=== PATIENT | male | born 1985 | race Caucasian/White ===

== ENCOUNTER 2020-03-28 17:22 | Emergency (ER) | payer MEDICAID, SELFPAY ==
[2020-03-28 17:53] VITALS: BP 122/77; PULSE 91; RESP 19; TEMP 36.9; O2SAT 97; BMI 28.2
[2020-03-28 17:57] VITALS: BP 122/77; PULSE 91; RESP 19; TEMP 36.9; O2SAT 97
--- NOTE | 2020-03-28 18:11 | ED.PSYCH ---
HPI - Psych General Chief Complaint: Psychiatric Symptoms Stated Complaint: SEEKING DETOX Time Seen by Provider: 03/28/20 17:37 Source: patient Mode of arrival: ambulatory Limitations: no limitations History of Present Illness HPI Narrative: 34-year-old male with history of psych and substance abuse presents with a request for detox and requires behavioral health and medical clearance. He has been using alcohol, heroin and cocaine. He does not describe any suicidal or homicidal ideations, does not report any physical complaints at this time. MD complaint: feels depressed, substance abuse and alcohol abuse Onset (ago): unknown Duration: constant History of same: Yes Relieving factors: none Exacerbating factors: alcohol and drug use Context: recent alcohol abuse and recent drug abuse Associated psychiatric symptoms: depression Associated symptoms: denies other symptoms Treatments prior to arrival: none Related Data Allergies Allergy/AdvReac Type Severity Reaction Status Date / Time No Known Allergies Allergy Unverified 12/27/19 17:30 Review of Systems Review of Systems: Constitutional: No Fever, No Chills ENT/Mouth: No Ear Pain, No Nasal Congestion, No sore throat Eyes: No Eye Pain, No Swelling, No Redness Cardiovascular: No Chest Pain, No SOB Respiratory: No Cough, No Sputum, No Dyspnea Gastrointestinal: No Nausea, No Vomiting, No Diarrhea, No Hematochezia, No Melena Genitourinary: No Dysuria, No Urinary Frequency, No Hematuria Musculoskeletal: No Myalgias Skin: No Skin Lesions, No rash Neuro: No Weakness, No Numbness, No Paresthesias, No Dizziness, No Headache Psych: no Anxiety, no Depression, no SI/HI, positive substance abuse ETOH and heroin Heme/Lymph: No Lymphadenopathy Endocrine: No Polyuria, No Polydipsia Yes all other systems are reviewed and are negative [facility] Past Medical History Attestation statement: The following information was validated with the patient. Social History Social History Alcohol intake: current Alcohol intake frequency: 3 or more drinks per day Alcohol type: beer Smoking Status: Current every day smoker Smoked in Last 30 Days: Yes Use of substances other than those prescribed or required for medical reasons: Yes Substance Use Type: Crack/Cocaine and Heroin Substance Use Frequency: Daily Last Used Substance: Hours (ago) Any prior treatment program specific to substance use: Yes Advance Directives: No Advance Directives Information Provided: Yes Physical Exam Vital Signs: Vital Signs: Last Vital Signs Temp 102.4 F H 03/28/20 23:44 Pulse 80 03/28/20 23:44 Resp 17 03/28/20 23:44 BP 120/44 L 03/28/20 23:44 Pulse Ox 99 03/28/20 23:44 Body Mass Index 28.2 Appearance: Alert. Oriented X3. No acute distress. Eyes: Pupils equal, round and reactive to light. ENT: Pharynx normal. Neck: Normal inspection. Neck supple. CVS: Normal heart rate and rhythm. Pulses normal. Respiratory: No respiratory distress. Breath sounds normal. Abdomen: Soft and nontender. Skin: multiple puncture wound in track mustapha site to the bilateral arms and neck Extremities: No lower extremity edema. Neuro: No motor deficit. No sensory deficit. Course Course Course Narrative: 34-year-old male with significant alcohol , cocaine and heroin abuse. Patient requires behavioral health and medical clearance prior to admission to detox. Labs and BHN consult pending. Care team consult complete, plan is for detox in the morning. MDM - Psych Differential Diagnosis Differential diagnosis: Likely depression, drug-induced psychotic disorder, acute anxiety, substance abuse and alcohol intoxication Restraints Face to Face Assessment: Face to Face Assessment: Current Situation: After assessment of the patient, a review of the pertinent medical record and a discussion with nursing staff, I feel the patient requires a restrain intervention. Reaction To: [] Medical Condition: [] Behavioral State: [] Continued Need: [] Medical Records Attestation: I reviewed the patient's medical records. Lab Data Attestation: I reviewed the patient's lab results. Result diagrams: 03/28/20 18:30 Labs: Lab Results 03/28/20 03/28/20 03/28/20 Range/Units 18:16 18:30 18:30 WBC 3.8 L (4.8-10.8) X10*3/uL RBC 4.07 L (4.60-5.80) X10*6/uL Hgb 11.3 L (14.0-18.0) g/dl Hct 34.8 L (42-52) % MCV 85.5 (80-98) fL MCH 27.8 (27.0-33.0) pg MCHC 32.5 (31.0-36.0) g/dl RDW 13.5 (11.0-16.0) % Plt Count 238 (160-400) X10*3/uL MPV 8.7 L (9.4-12.4) fL Immature Gran % (Auto) 0.0 (0.0-0.4) % Neut % (Auto) 79.4 H (45-73) % Lymph % (Auto) 14.7 L (20-40) % [place] % (Auto) 4.3 (2-11) % Eos % (Auto) 0.8 (0-4) % Baso % (Auto) 0.8 (0-2) % Lymph # (Auto) 0.6 L (1.2-4.9) X10*3/uL [place] # (Auto) 0.2 (0.1-1.2) X10*3/uL Eos # (Auto) 0.0 (0.0-0.4) X10*3/uL Baso # (Auto) 0.0 (0.0-0.2) X10*3/uL Abs Immat Gran (auto) 0.00 (0.00-0.03) X10*3/uL Absolute Neuts (auto) 3.0 (2.0-8.3) X10*3/uL Absolute Nucleated RBC 0.000 (0.0-0.012) X10*3/uL Nucleated RBC % (auto) 0.0 (0.0-0.2) /100WBC Smear Tech's Comments VERIFIED Urine Opiates Screen POSITIVE H (Not Detect) Ur Barbiturates Screen Not Detected (Not Detect) Ur Phencyclidine Scrn Not Detected (Not Detect) Ur Amphetamines Screen Not Detected (Not Detect) U Benzodiazepines Scrn POSITIVE H (Not Detect) Urine Cocaine Screen POSITIVE H (Not Detect) U Marijuana (THC) Screen Not Detected (Not Detect) Ethyl Alcohol < 10 mg/dL Coronavirus (PCR) (Negative) Influenza Type A (PCR) (Negative) Influenza Type B (PCR) (Negative) RSV RNA Qual (PCR) (Negative) 03/28/20 Range/Units 23:57 WBC (4.8-10.8) X10*3/uL RBC (4.60-5.80) X10*6/uL Hgb (14.0-18.0) g/dl Hct (42-52) % MCV (80-98) fL MCH (27.0-33.0) pg MCHC (31.0-36.0) g/dl RDW (11.0-16.0) % Plt Count (160-400) X10*3/uL MPV (9.4-12.4) fL Immature Gran % (Auto) (0.0-0.4) % Neut % (Auto) (45-73) % Lymph % (Auto) (20-40) % [place] % (Auto) (2-11) % Eos % (Auto) (0-4) % Baso % (Auto) (0-2) % Lymph # (Auto) (1.2-4.9) X10*3/uL [place] # (Auto) (0.1-1.2) X10*3/uL Eos # (Auto) (0.0-0.4) X10*3/uL Baso # (Auto) (0.0-0.2) X10*3/uL Abs Immat Gran (auto) (0.00-0.03) X10*3/uL Absolute Neuts (auto) (2.0-8.3) X10*3/uL Absolute Nucleated RBC (0.0-0.012) X10*3/uL Nucleated RBC % (auto) (0.0-0.2) /100WBC Smear Tech's Comments Urine Opiates Screen (Not Detect) Ur Barbiturates Screen (Not Detect) Ur Phencyclidine Scrn (Not Detect) Ur Amphetamines Screen (Not Detect) U Benzodiazepines Scrn (Not Detect) Urine Cocaine Screen (Not Detect) U Marijuana (THC) Screen (Not Detect) Ethyl Alcohol mg/dL Coronavirus (PCR) NEGATIVE (Negative) Influenza Type A (PCR) NEGATIVE (Negative) Influenza Type B (PCR) NEGATIVE (Negative) RSV RNA Qual (PCR) NEGATIVE (Negative) Discharge Plan Discharge Clinical Impression: Substance abuse Patient Disposition: Home, Self-Care Instructions: Polysubstance Abuse (ED) Additional Instructions: Please follow-up with detox. Thank you for choosing this emergency department for evaluation. Please follow-up with primary care physician as needed. Return to the emergency department for any new, concerning, or worsening symptoms.
[2020-03-28 18:37] LABS: Basophils Percent Auto 0.8 % (0-2); Eosinophils Percent Auto 0.8 % (0-4); Hematocrit 34.8 % (42-52); Hemoglobin 11.3 g/dl (14.0-18.0); Lymphocytes Absolute Auto 0.6 X10*3/uL (1.2-4.9); Lymphocytes Percent Auto 14.7 % (20-40); MANUAL DIFF FLAG SCAN; Mean Corpuscular HGB Conc 32.5 g/dl (31.0-36.0); Mean Corpuscular Hemoglobin 27.8 pg (27.0-33.0); Mean Corpuscular Volume 85.5 fL (80-98); Mean Platelet Volume 8.7 fL (9.4-12.4); Monocytes Absolute Auto 0.2 X10*3/uL (0.1-1.2); Monocytes Percent Auto 4.3 % (2-11); Neutrophils Percent Auto 79.4 % (45-73); Platelet Count 238 X10*3/uL (160-400); Red Blood Count 4.07 X10*6/uL (4.60-5.80); Red Cell Distribution Width 13.5 % (11.0-16.0); SCAN SMEAR FLAG 1; White Blood Count 3.8 X10*3/uL (4.8-10.8)
[2020-03-28 19:03] LABS: Amphetamine Screen Urine Not Detected (Not Detect); Barbiturates, Urine Not Detected (Not Detect); Benzodiazepines Screen Urine POSITIVE (Not Detect); Cannabinoid Screen Urine Not Detected (Not Detect); Cocaine Screen Urine POSITIVE (Not Detect); Opiate Screen Urine POSITIVE (Not Detect); Phencyclidine Screen Urine Not Detected (Not Detect)
[2020-03-28 19:12] LABS: Ethanol < 10 mg/dL
[2020-03-28 19:19] LABS: SLIDE REVIEW VERIFIED
--- NOTE | 2020-03-28 22:52 | PC.NURSE ---
Per care team, N unable to send clinician to assess the patient, care team will take over and assess the patient per provider's order. Patient in bed appears resting. no distress observed/reported, will continue to monitor.
[2020-03-28] MEDS: LORazepam 1 MG TABLET 2 MG PO (23:31)
[2020-03-28 23:44] VITALS: BP 120/44; PULSE 80; RESP 17; TEMP 39.1; O2SAT 99
[2020-03-28] MEDS: Acetaminophen 325 MG TABLET 650 MG PO (23:44)
--- NOTE | 2020-03-29 00:03 | PC.NURSE ---
Patient swabbed for Covid/sample sent to lab/patient compliant/pending result
--- NOTE | 2020-03-29 00:05 | PC.NURSE ---
Patient assessed by care team clinician, patient will be staying tonight, care team will do detox bed serach for the patient in the morning.
--- NOTE | 2020-03-29 00:17 | MHC.CARE ---
CARE Team meets with pt in the ED behavioral health pod. Pt was referred to [facility] for crisis assessment, however, [facility] is not available to see pt tonight and therefore, pt is seen by CARE Team. Pt was directed to the ED by [facility]. Pt went there today, seeking ATS admission. He reports that during this process, he became frustrated, because he did not have the belongings with him that he needed and he learned that he would not be able to leave to get them and have his place in line held. Pt identifies that he became irritated, raising his voice, pacing and using inappropriate language. Pt states that [facility] then told him they would not consider his for admission without being cleared for needing higher level of psychiatric care. CARE Team confirms with [facility] that pt does not have a bed held for him, and never had a bed assigned to him today. During CARE Team intervention, pt appears irritable, reporting withdrawal sx. UTOX is positive for cocaine, opioids, and benzodiazepines. Pt also reports some alcohol use, BAL <10. He is sleeping when CARE Team initiates engagement, but he wakes easily and is able to sit up, however, makes minimal eye contact. He reports not prior hospitalizations or outpatient psychiatric care. Per [facility] curriculum supervisor, Bruna, pt has never been evaluated by crisis in the past but has a hx of ATS admissions at [facility]. Pt denies SI//HI and AVH. He denies feeling depressed or anxious. He reported several stressors relating to increased substance use, including housing instability, relationship and financial difficulties, etc. He reports feeling motivated to get clean, and reports long periods of sobreity in the past. Pt does not meet criteria for inpt level of care. Irritability witnessed earlier today is likely related to increased stress relating to substance use, and withdrawal from multiple substances. Pt is advocating for himself to be placed in ATS directly from the ED so he does not hit the streets again. CARE Team conducted local ATS bedsearch. Pt denies having transportation to/from ATS, which limits options. [facility], [facility], [facility], [facility] and [facility] are called and have no beds tonight. Per [facility], no other beds available throughout the state. Plan is for pt to remain in the ED on a voluntary basis. CARE Team will conduct another ATS bedsearch in the morning. CARE Team communicates to pt that if there is still no bed found in the morning, he will likely be discharged, and in that event, CARE Team can provide a list of ATS units with contact info.
[2020-03-29 01:01] LABS: Influenza A PCR NEGATIVE (Negative); Influenza B PCR NEGATIVE (Negative); Resp Syncy Virus RNA Qual PCR NEGATIVE (Negative); SARS COV2 PCR INHOUSE NEGATIVE (Negative)
[2020-03-29 01:54] VITALS: TEMP 37
--- NOTE | 2020-03-29 07:11 | PC.NURSE ---
Report received from CELSO Hunt. Pt resting, resp unlabored.
[2020-03-29 08:00] VITALS: RESP 20
--- NOTE | 2020-03-29 09:38 | PC.NURSE ---
Care team in- per Care team, pt has a bed at [facility], pending intake. Pt aware, and willing to make calls. [facility] in to draw labs. Pt awake, making call.
[2020-03-29 10:00] VITALS: RESP 18
--- NOTE | 2020-03-29 10:04 | MHC.CARE ---
CARE team to assist in detox referral per pass along. T/w contacted central intake at [facility] and not open until 9am and when called after 9am central intake informed t/w that pt was on a 2 month administrative do not admit list for noncompliance. Pt is not to be accepted at any [facility] facility until may 20. Pt was reportedly leaving the program after receiving his methadone dosing. T/w contacted [facility] and no admissions today at any of their facilities. T/w called [facility] and Jasvir at intake accepted clinical faxed at [phone] and asked to have a phone interview with pt for possible intake today. T/w provided CARE team portable phone for this use and overseen by pod staff. Pending outcome of said interview.
--- NOTE | 2020-03-29 10:13 | PC.NURSE ---
Pt called [facility], as suggested, who said they would not be able to accommodate him. Pt currently calling [facility].
[2020-03-29 10:19] VITALS: BP 117/62; PULSE 71; TEMP 37.1; O2SAT 98
[2020-03-29 10:53] LABS: Alanine Aminotransferase 369 U/L (0-40); Albumin Level 3.8 g/dL (3.5-5.0); Alkaline Phosphatase 98 U/L (39-117); Anion Gap 10 (12-20); Aspartate Amino Transferase 445 U/L (5-37); Bilirubin Direct 0.4 mg/dL (0.0-0.5); Bilirubin Total 0.8 mg/dL (0.0-1.0); Blood Urea Nitrogen 15 mg/dL (9-16); Calcium 8.4 mg/dL (8.4-10.2); Carbon Dioxide 28 mmol/L (22-29); Chloride 105 mmol/L (96-108); Creatinine Clr Calc Pharmacy 111.9; Estimated Glomerular Filt Rate > 60; Glucose Random 93 mg/dL (60-115); Magnesium 2.1 mg/dL (1.6-2.6); Potassium 3.9 mmol/l (3.3-5.1); Sodium 139 mmol/L (135-145); Total Protein 6.5 g/dL (6.5-8.0)
--- NOTE | 2020-03-29 11:39 | PC.NURSE ---
Report given to Miriam fontenot [place]. Pt accepted for 1500 today. Provider aware.
--- NOTE | 2020-03-29 11:49 | US_ITS ---
EXAMINATION: US ABDOMEN COMPLETE CLINICAL INFORMATION: Elevated LFTs. COMPARISON: None TECHNIQUE: Real-time imaging of the abdominal viscera. FINDINGS: PANCREAS: The visualized portion of the pancreas head and body are normal, portion of the pancreatic body and tail, not visualized are obscured by bowel gas. ABDOMINAL AORTA: The proximal, mid, and distal segments are normal in caliber. INFERIOR VENA CAVA: Visualized portions are normal. LIVER: Normal. The liver is normal in size. The liver contour is normal. Parenchymal echogenicity is normal. No focal hepatic lesion. There is no intrahepatic biliary duct dilatation seen. GALLBLADDER: Gallbladder is contracted, the wall of which is thickened however probably due to nondistention nonfasting imaging. No gallstones. COMMON BILE DUCT: Normal in caliber measuring 0.2 cm in diameter. RIGHT KIDNEY: Normal. No hydronephrosis. No renal calculi or focal parenchymal lesions. The kidney measures 10.2 cm in maximum dimension. LEFT KIDNEY: Normal. No hydronephrosis. No renal calculi or focal parenchymal lesions. The kidney measures 10.2 cm in maximum dimension. SPLEEN: Enlarged The spleen measures 16 cm in maximum dimension. There are 2 splenules 1.4 x 1.1 x 1.1 cm and 2 x 2 x 1.9 cm. FREE FLUID: None. US/US abdomen complete IMPRESSION: 1. Spleen enlarged 16 cm. 2. Solid rounded structure adjacent to the splenic hilum likely splenules. Ultrasound otherwise normal.
--- NOTE | 2020-03-29 11:53 | PC.NURSE ---
Pt awake, alert, aware that has accepted him for 1500. Pt denies any abdominal pain, or symptoms at this time.
[2020-03-29 12:00] VITALS: RESP 18
--- NOTE | 2020-03-29 12:48 | PC.NURSE ---
Pt at Ultrasound at this time. At pt's request, spoke with Aunt, Soledad, to verify that he has been accepted to [place]. Aunt will transport him to [place], will crop picker at 1400.
--- NOTE | 2020-03-29 13:27 | PC.NURSE ---
Pt resting, resp unlabored.
[2020-03-29 14:00] VITALS: RESP 18
[2020-03-31 07:53] LABS: Hepatitis B Surface Antigen Negative (Negative); ~HepC Num1 14.81 S/CO (0.00-0.79); ~Hepatitis C Antibody Reactive (Nonreactive)
[2020-03-31 08:30] LABS: HBS Num1 2.13 mIU/mL (0-7.99); HBc Num1 0.13 S/CO (0.00-0.79); Hepatitis B Core Antibody Nonreactive (Nonreactive); ~Hepatitis B Surface Antibody NONREACTIVE (Nonreactive)
[2020-04-02 08:19] LABS: Hepatitis A Antibody IgM 0.36 Index (0-0.79); ~Hepatitis A Antibody IgM Nonreactive (Nonreactive)
== END 2020-03-29 14:17 | disposition home or self-care (01) ==
PROVIDERS: Nurse Practitioner Family; Physician Assistant Medical; Emergency Provider Emergency Medicine
DX: F11.10 Opioid abuse, uncomplicated (principal); F14.10 Cocaine abuse, uncomplicated; F13.10 Sedative, hypnotic or anxiolytic abuse, uncomplicated; F10.10 Alcohol abuse, uncomplicated; Y90.0 Blood alcohol level of less than 20 mg/100 ml; Z20.828 Contact with and (suspected) exposure to other viral communicable diseases; F17.200 Nicotine dependence, unspecified, uncomplicated
CPT/HCPCS: 0241U; 36415; 76700; 80048; 80076; 80307; 80320; 83735; 85025; 86704; 86706; 86709; 86803; 87340; 99285

== ENCOUNTER 2020-07-01 19:59 | Inpatient (IN) | payer MEDICAID, SELFPAY ==
--- NOTE | ~2020-07-01 | CT_ITS ---
EXAMINATION: CT LEFT FOREARM AND LEFT HAND WITH CONTRAST CLINICAL INFORMATION: Swelling. Concern for osteomyelitis. COMPARISON: None TECHNIQUE: Contiguous helical images of the left forearm and hand were obtained following the administration of IV contrast. Multiplanar reconstructions were performed. FINDINGS: No drainable fluid collections are identified. There are no osseous abnormalities. There are no fractures. There aren't no areas of cortical destruction. CT/CT forearm LT w con IMPRESSION: No drainable fluid collections are identified. There are no osseous abnormalities. There are no fractures. There aren't no areas of cortical destruction.
--- NOTE | ~2020-07-01 | US_ITS ---
EXAMINATION: US VENOUS WITH DOPPLER UPPER EXTREMITY, LEFT CLINICAL INFORMATION: Left arm swelling. COMPARISON: None TECHNIQUE: Ultrasound of the upper extremity is performed using compression sonography and color and pulse Doppler flow with assessment of augmentation of flow. There is also imaging and Doppler assessment of the jugular and subclavian veins. Spectral analysis with color-flow imaging is performed. FINDINGS: Respiratory variation, normal compression, and augmented flow are noted throughout the upper extremity including the axillary, brachial, cubital, and radial and ulnar veins. There is normal flow in the internal jugular and subclavian veins. There is no visible deep or superficial thrombophlebitis. If the patient's symptoms progress, a followup ultrasound in 5 -7 days might be of value to exclude proximal propagation from a nonvisualized distal arm vein. US/US venous duplex UE LT IMPRESSION: No DVT demonstrated in the left upper extremity.
--- NOTE | ~2020-07-01 | CT_ITS ---
EXAMINATION: CT FACIAL BONES WITH CONTRAST CLINICAL INFORMATION: Right orbital cellulitis. COMPARISON: None TECHNIQUE: Contiguous helical images of the orbits were obtained following the administration of IV contrast. 100 mL of Omnipaque 350 were administered without incident. This CT examination was performed using dose optimization techniques as appropriate, variously including the following: *Automated exposure control *Adjustment of mA and/or kV according to patient size (this includes techniques or standardized protocols for targeted exams where dose is matched to indication/reason for exam; i.e. extremities or head) *Use of iterative reconstruction technique DLP: 589 mGy-cm FINDINGS: There is no acute maxillofacial fracture. The pterygoid plates are intact. The zygomatic arches are intact. The lamina papyracea are intact. The orbital rims are intact. The paranasal sinuses are well-aerated. No air-fluid levels are seen. There is deviation of the nasal septum. The ostiomeatal complexes are clear. The lamina papyracea are intact. The ethmoid roofs are symmetric. The carotid canals are normally covered by bone. No maxillary periapical disease is seen. The mastoid air cells and visualized middle ear cavities are well-aerated. There is right preseptal cellulitis. No intraconal abnormalities are demonstrable. The TMJs are unremarkable. The imaged portions of the brain demonstrate no acute abnormality. CT/CT facial bones w con IMPRESSION: Right preseptal cellulitis without intraconal abnormalities. No acute intracranial process or discrete facial bone fracture.
--- NOTE | ~2020-07-01 | CT_ITS ---
EXAMINATION: CT LEFT FOREARM AND LEFT HAND WITH CONTRAST CLINICAL INFORMATION: Swelling. Concern for osteomyelitis. COMPARISON: None TECHNIQUE: Contiguous helical images of the left forearm and hand were obtained following the administration of IV contrast. Multiplanar reconstructions were performed. FINDINGS: No drainable fluid collections are identified. There are no osseous abnormalities. There are no fractures. There aren't no areas of cortical destruction. CT/CT hand LT w con IMPRESSION: No drainable fluid collections are identified. There are no osseous abnormalities. There are no fractures. There aren't no areas of cortical destruction.
[2020-07-01 20:16] VITALS: BP 140/79; PULSE 105; RESP 17; TEMP 37.3; O2SAT 100; BMI 24.3
--- NOTE | 2020-07-01 22:32 | PC.NURSE ---
Per patient my eye is fucking swollen. I was at [facility], they gave me a fucking antibiotic for the hand but my eye is swollen too. Why do you care what antibiotic I was d/c with. I don't fucking care.
--- NOTE | 2020-07-01 22:48 | ED_ITS ---
HPI - General Adult General Chief complaint: Eye Problems <ARACELI Leo Last Filed: 07/02/20 03:00> Stated complaint: EYE PAIN <ARACELI Leo Last Filed: 07/02/20 03:00> Time Seen by Provider: 07/01/20 21:58 <ARACELI Leo Last Filed: 07/02/20 03:00> Source: patient <ARACELI Leo Last Filed: 07/02/20 03:00> Mode of arrival: ambulatory <ARACELI Leo Last Filed: 07/02/20 03:00> Limitations: no limitations <ARACELI Leo Last Filed: 07/02/20 03:00> History of Present Illness HPI narrative: Patient presents to ED for right eye pain. Patient states 3 days of right eye pain/swelling of eyelids and unable to open the eye. Patient's secondary complaint is left hand swelling and redness. Patient states he was seen at [facility] 3 days ago but was not admitted. Patient states right eye swelling and pain has worsened. Patient has IV drug user <ARACELI Leo Last Filed: 07/02/20 03:00> Related Data Home medications: Home Medications Medication Instructions Recorded Confirmed No Known Home Meds 07/02/20 07/02/20 <ARACELI Leo Last Filed: 07/02/20 03:00> Allergies/adverse reactions: Allergies Allergy/AdvReac Type Severity Reaction Status Date / Time No Known Allergies Allergy Unverified 12/27/19 17:30 <ARACELI Leo Last Filed: 07/02/20 03:00> Review of Systems Review of Systems: Yes all other systems are reviewed and are negative <ARACELI Leo Last Filed: 07/02/20 03:00> Constitutional: Constitutional: Reports as per HPI and Reports no additional constitutional complaints <ARACELI Leo Last Filed: 07/02/20 03:00> Eyes: Eyes: Reports as per HPI and Reports no additional eye complaints <ARACELI Leo Last Filed: 07/02/20 03:00> Comments: Right eye pain/swelling/redness <ARACELI Leo Last Filed: 07/02/20 03:00> ENT: Reports system reviewed and no additional complaints, except as docume nted and Reports as per HPI <ARACELI Leo Last Filed: 07/02/20 03:00> Cardiovascular: Cardiovascular: Reports as per HPI and Reports no additional cardiovascular complaints <ARACELI Leo Last Filed: 07/02/20 03:00> Respiratory: Respiratory: Reports as per HPI and Reports no additional respiratory complaints <ARACELI Leo Last Filed: 07/02/20 03:00> Gastrointestinal: Gastrointestinal: Reports as per HPI and Reports no additional gastrointestinal complaints <ARACELI Leo Last Filed: 07/02/20 03:00> Genitourinary: Genitourinary: Reports no additional male genitourinary complaints and Reports as per HPI <ARACELI Leo Last Filed: 07/02/20 03:00> Musculoskeletal: Musculoskeletal: Reports no additional musculoskeletal comp laints and Reports as per HPI <ARACELI Leo Last Filed: 07/02/20 03:00> Comments: Left hand swelling and redness on the dorsal aspect of hand going down forearm. <ARACELI Leo Last Filed: 07/02/20 03:00> Neurologic: Reports system reviewed and no additional complaints, except as documented and Reports as per HPI <ARACELI Leo Last Filed: 07/02/20 03:00> Psychiatric: Psychiatric: Reports no additional psychiatric complaints and Reports as per HPI <ARACELI Leo Last Filed: 07/02/20 03:00> [facility] Social History Social History: Social History Alcohol intake: current Alcohol intake frequency: 3 or more drinks per day Alcohol type: beer Smoking Status: Current every day smoker Use of substances other than those prescribed or required for medical reasons: Yes Substance Use Type: Crack/Cocaine, Heroin, IV Drugs, Marijuana and Opiates Substance Use Frequency: Chronic Longstanding Last Used Substance: Just Prior to Admission Advance Directives: No Advance Directives Information Provided: No <ARACELI Leo Last Filed: 07/02/20 03:00> Physical Exam Vital Signs: Vital Signs: Last Vital Signs Temp 100.9 F H 07/01/20 23:33 Pulse 92 07/01/20 23:33 Resp 16 07/02/20 04:00 BP 122/61 07/01/20 23:33 Pulse Ox 97 07/01/20 23:33 Body Mass Index 24.3 <ARACELI Leo - Last Filed: 07/02/20 03:00> Vital Signs: Last Vital Signs Temp 100.9 F H 07/01/20 23:33 Pulse 92 07/01/20 23:33 Resp 16 07/02/20 04:00 BP 122/61 07/01/20 23:33 Pulse Ox 97 07/01/20 23:33 Body Mass Index 24.3 <Bailee Mejia MD - Last Filed: 07/02/20 06:07> Const: General: cooperative, healthy appearing, comfortable, no acute distress, well developed, alert, awake and Physically active; No lethargic <ARACELI Leo - Last Filed: 07/02/20 03:00> Orientation/consciousness: patient oriented x3 and No lethargic <ARACELI Leo Last Filed: 07/02/20 03:00> HENMT: Head: Yes normal to inspection, Yes No palpable skull fracture present, Yes normocephalic, Yes atraumatic, Yes abrasion, No contusion, No cranial bruits, No hematoma, No laceration, No occipital foramen tenderness, No palpable skull fracture, No raccoon eyes and No scalp lesion <ARACELI Leo Last Filed: 07/02/20 03:00> Eyes: Other: Right eye: Positive for swelling of upper and lower eyelid with redness. Unable to open eye. Patient was able to move his eyeball under eyelids without pain. <ARACELI Leo Last Filed: 07/02/20 03:00> Neck: Neck: Yes normal visual inspection, Yes full ROM, Yes no lymphadenopathy, Yes no meningeal signs, Yes trachea midline, Yes supple and No tender <ARACELI Leo Last Filed: 07/02/20 03:00> Chest: Chest palpation & inspection: normal inspection of the chest and normal palpation of entire chest wall <ARACELI Leo Last Filed: 07/02/20 03:00> Resp: Effort & Inspection: normal respiratory effort and able to speak in complete sentences <ARACELI Leo Last Filed: 07/02/20 03:00> Auscultation: clear to auscultation bilaterally <ARACELI Leo Last Filed: 07/02/20 03:00> Cardio: Jugular venous distension: no JVD <ARACELI Leo Shabbir Last Filed: 07/02/20 03:00> Heart sounds: S1 normal heart sound present and S2 normal heart sound present <ARACELI Leo Shabbir Last Filed: 07/02/20 03:00> GI: Inspection: Yes normal to inspection and No abdominal wall ecchymosis <ARACELI Leo Last Filed: 07/02/20 03:00> Palpation (GI): Soft to palpation, not firm, nontender, no guarding and not rigid <ARACELI Leo Shabbir Last Filed: 07/02/20 03:00> : General: No CVA tenderness and Yes no CVA tenderness <ARACELI Leo Last Filed: 07/02/20 03:00> Back/Spine/Pelvis: Back: no CVA tenderness, No CVA tenderness and No back tenderness <ARACELI Leo Shabbir Last Filed: 07/02/20 03:00> Skin: Other: Redness and swelling of the eye. Left hand swelling or redness <ARACELI Leo Shabbir Last Filed: 07/02/20 03:00> Neuro: General: patient oriented x3, no meningeal signs and CN's II-XI intact bilaterally <ARACELI Leo Shabbir Last Filed: 07/02/20 03:00> Cranial nerves: Yes CN's II-XII intact bilaterally <ARACELI Leo Last Filed: 07/02/20 03:00> Extrem: Other: Left hand swelling and redness on the dorsal aspect of hand and forearm. Patient has complete range of motion of fingers. Not suspecting tenosynovitis. <ARACELI Leo Last Filed: 07/02/20 03:00> General: Yes normal to inspection and Yes full ROM <ARACELI Leo Last Filed: 07/02/20 03:00> Psych: Appearance: grossly normal, well kempt and not disheveled <ARACELI Leo - Last Filed: 07/02/20 03:00> Course Course Course Narrative: Patient history physical exam concerning for right orbital cellulitis. Nexus Mari. Patient will be sent for imaging of face to rule out right orbital cellulitis. Patient also have CT scan of left upper extremity to rule out tenosynovitis. Patient also need antibiotics. <ARACELI Leo - Last Filed: 07/02/20 03:00> There is no acute maxillofacial fracture. The pterygoid plates are intact. The zygomatic arches are intact. The lamina papyracea are intact. The orbital rims are intact. The paranasal sinuses are well-aerated. No air-fluid levels are seen. There is deviation of the nasal septum. The ostiomeatal complexes are clear. The lamina papyracea are intact. The ethmoid roofs are symmetric. The carotid canals are normally covered by bone. No maxillary periapical disease is seen. The mastoid air cells and visualized middle ear cavities are well-aerated. There is right preseptal cellulitis. No intraconal abnormalities are demonstrable. The TMJs are unremarkable. The imaged portions of the brain demonstrate no acute abnormality. CT/CT facial bones w con IMPRESSION: Right preseptal cellulitis without intraconal abnormalities. No acute intracranial process or discrete facial bone fracture. <Bailee Mejia MD - Last Filed: 07/02/20 06:07> Reevaluation(s) Reevaluation #1: Patient is an IV drug user so presently only straight stick will be done. Waiting for patient to be placed in the nursing station so he will not walk on the ER with IV in his arm. <ARACELI Leo - Last Filed: 07/02/20 03:00> Reevaluation #2: I received glue taking seen ED report from 3 days ago which shows that patient had x-rays are negative for osteomyelitis and was discharged with Keflex and Bactrim. There was no mention of patient's eye being swollen or eye being exam. Awaiting results for facial, forearm, and hand CT. Ultrasound negative for DVT. Clinically exam does not indicate extraocular entrapment. Low suspicion for tenosynovitis since able to move fingers. <ARACELI Leo - Last Filed: 07/02/20 03:00> Reevaluation #3: Spoke with hospitalists for admission for left hand cellulits. SHe was informed that CT results of right eye to (rule out orbital cellulititis) and left hand was pending. Dr. Mejia will follow CT scan results and informed Hospitalists, Dr. Berger. <ARACELI Leo - Last Filed: 07/02/20 03:00> Medical Decision Making MDM Narrative Medical decision making narrative: Left hand cellullitis. Right preseptal cellulitis. <ARACELI Leo - Last Filed: 07/02/20 03:00> Lab Data Result diagrams: : 07/01/20 23:31 07/01/20 23:31 <ARACELI Leo - Last Filed: 07/02/20 03:00> Labs: Lab Results 07/01/20 07/01/20 07/01/20 Range/Units 23:30 23:30 23:31 WBC 9.4 (4.8-10.8) X10*3/uL RBC 4.48 L (4.60-5.80) X10*6/uL Hgb 11.8 L (14.0-18.0) g/dl Hct 37.2 L (42-52) % MCV 83.0 (80-98) fL MCH 26.3 L (27.0-33.0) pg MCHC 31.7 (31.0-36.0) g/dl RDW 15.2 (11.0-16.0) % Plt Count 264 (160-400) X10*3/uL MPV 9.1 L (9.4-12.4) fL Immature Gran % (Auto) 0.2 (0.0-0.4) % Neut % (Auto) 78.1 H (45-73) % Lymph % (Auto) 13.3 L (20-40) % [place] % (Auto) 7.7 (2-11) % Eos % (Auto) 0.5 (0-4) % Baso % (Auto) 0.2 (0-2) % Lymph # (Auto) 1.3 (1.2-4.9) X10*3/uL [place] # (Auto) 0.7 (0.1-1.2) X10*3/uL Eos # (Auto) 0.1 (0.0-0.4) X10*3/uL Baso # (Auto) 0.0 (0.0-0.2) X10*3/uL Abs Immat Gran (auto) 0.02 (0.00-0.03) X10*3/uL Absolute Neuts (auto) 7.3 (2.0-8.3) X10*3/uL Absolute Nucleated RBC 0.000 (0.0-0.012) X10*3/uL Nucleated RBC % (auto) 0.0 (0.0-0.2) /100WBC ESR 36 H (0-15) MM/HR PT (10.8-13.0) SEC INR (0.9-1.1) APTT (24.1-38.0) SEC Sodium (135-145) mmol/L Potassium (3.3-5.1) mmol/L Chloride (96-108) mmol/L Carbon Dioxide (22-29) mmol/L Anion Gap (12-20) BUN (9-16) mg/dL Creatinine (0.5-1.4) mg/dL Estim Creat Clear Calc Estimated GFR Random Glucose (60-115) mg/dL Lactic Acid (0.5-2.0) mmol/L Calcium (8.4-10.2) mg/dL Total Bilirubin (0.0-1.0) mg/dL AST (5-37) U/L ALT (0-40) U/L Alkaline Phosphatase (39-117) U/L C-Reactive Protein 9.82 H (< or = 0.50) mg/dL Total Protein (6.5-8.0) g/dL Albumin (3.5-5.0) g/dL COVID-19 (EMPERATRIZ) (Negative) COVID-19 Clin Com 07/01/20 07/01/20 07/01/20 Range/Units 23:31 23:31 23:31 WBC (4.8-10.8) X10*3/uL RBC (4.60-5.80) X10*6/uL Hgb (14.0-18.0) g/dl Hct (42-52) % MCV (80-98) fL MCH (27.0-33.0) pg MCHC (31.0-36.0) g/dl RDW (11.0-16.0) % Plt Count (160-400) X10*3/uL MPV (9.4-12.4) fL Immature Gran % (Auto) (0.0-0.4) % Neut % (Auto) (45-73) % Lymph % (Auto) (20-40) % [place] % (Auto) (2-11) % Eos % (Auto) (0-4) % Baso % (Auto) (0-2) % Lymph # (Auto) (1.2-4.9) X10*3/uL [place] # (Auto) (0.1-1.2) X10*3/uL Eos # (Auto) (0.0-0.4) X10*3/uL Baso # (Auto) (0.0-0.2) X10*3/uL Abs Immat Gran (auto) (0.00-0.03) X10*3/uL Absolute Neuts (auto) (2.0-8.3) X10*3/uL Absolute Nucleated RBC (0.0-0.012) X10*3/uL Nucleated RBC % (auto) (0.0-0.2) /100WBC ESR (0-15) MM/HR PT 14.9 H (10.8-13.0) SEC INR 1.3 H (0.9-1.1) APTT 31.4 (24.1-38.0) SEC Sodium 133 L (135-145) mmol/L Potassium 4.0 (3.3-5.1) mmol/L Chloride 96 (96-108) mmol/L Carbon Dioxide 24 (22-29) mmol/L Anion Gap 17 (12-20) BUN 12 (9-16) mg/dL Creatinine 1.02 (0.5-1.4) mg/dL Estim Creat Clear Calc 106.3 Estimated GFR > 60 Random Glucose 130 H D (60-115) mg/dL Lactic Acid 0.7 (0.5-2.0) mmol/L Calcium 8.7 (8.4-10.2) mg/dL Total Bilirubin 0.7 (0.0-1.0) mg/dL AST 26 D (5-37) U/L ALT 14 (0-40) U/L Alkaline Phosphatase 89 (39-117) U/L C-Reactive Protein 9.83 H (< or = 0.50) mg/dL Total Protein 7.3 (6.5-8.0) g/dL Albumin 4.3 (3.5-5.0) g/dL COVID-19 ([facility]PERATRIZ) (Negative) COVID-19 Clin Com 07/02/20 Range/Units 03:14 WBC (4.8-10.8) X10*3/uL RBC (4.60-5.80) X10*6/uL Hgb (14.0-18.0) g/dl Hct (42-52) % MCV (80-98) fL MCH (27.0-33.0) pg MCHC (31.0-36.0) g/dl RDW (11.0-16.0) % Plt Count (160-400) X10*3/uL MPV (9.4-12.4) fL Immature Gran % (Auto) (0.0-0.4) % Neut % (Auto) (45-73) % Lymph % (Auto) (20-40) % [place] % (Auto) (2-11) % Eos % (Auto) (0-4) % Baso % (Auto) (0-2) % Lymph # (Auto) (1.2-4.9) X10*3/uL [place] # (Auto) (0.1-1.2) X10*3/uL Eos # (Auto) (0.0-0.4) X10*3/uL Baso # (Auto) (0.0-0.2) X10*3/uL Abs Immat Gran (auto) (0.00-0.03) X10*3/uL Absolute Neuts (auto) (2.0-8.3) X10*3/uL Absolute Nucleated RBC (0.0-0.012) X10*3/uL Nucleated RBC % (auto) (0.0-0.2) /100WBC ESR (0-15) MM/HR PT (10.8-13.0) SEC INR (0.9-1.1) APTT (24.1-38.0) SEC Sodium (135-145) mmol/L Potassium (3.3-5.1) mmol/L Chloride (96-108) mmol/L Carbon Dioxide (22-29) mmol/L Anion Gap (12-20) BUN (9-16) mg/dL Creatinine (0.5-1.4) mg/dL Estim Creat Clear Calc Estimated GFR Random Glucose (60-115) mg/dL Lactic Acid (0.5-2.0) mmol/L Calcium (8.4-10.2) mg/dL Total Bilirubin (0.0-1.0) mg/dL AST (5-37) U/L ALT (0-40) U/L Alkaline Phosphatase (39-117) U/L C-Reactive Protein (< or = 0.50) mg/dL Total Protein (6.5-8.0) g/dL Albumin (3.5-5.0) g/dL COVID-19 (EMPERATRIZ) Negative (Negative) COVID-19 Clin Com See Note <ARACELI Leo - Last Filed: 07/02/20 03:00> Lab Results 07/01/20 07/01/20 07/01/20 Range/Units 23:30 23:30 23:31 WBC 9.4 (4.8-10.8) X10*3/uL RBC 4.48 L (4.60-5.80) X10*6/uL Hgb 11.8 L (14.0-18.0) g/dl Hct 37.2 L (42-52) % MCV 83.0 (80-98) fL MCH 26.3 L (27.0-33.0) pg MCHC 31.7 (31.0-36.0) g/dl RDW 15.2 (11.0-16.0) % Plt Count 264 (160-400) X10*3/uL MPV 9.1 L (9.4-12.4) fL Immature Gran % (Auto) 0.2 (0.0-0.4) % Neut % (Auto) 78.1 H (45-73) % Lymph % (Auto) 13.3 L (20-40) % [place] % (Auto) 7.7 (2-11) % Eos % (Auto) 0.5 (0-4) % Baso % (Auto) 0.2 (0-2) % Lymph # (Auto) 1.3 (1.2-4.9) X10*3/uL [place] # (Auto) 0.7 (0.1-1.2) X10*3/uL Eos # (Auto) 0.1 (0.0-0.4) X10*3/uL Baso # (Auto) 0.0 (0.0-0.2) X10*3/uL Abs Immat Gran (auto) 0.02 (0.00-0.03) X10*3/uL Absolute Neuts (auto) 7.3 (2.0-8.3) X10*3/uL Absolute Nucleated RBC 0.000 (0.0-0.012) X10*3/uL Nucleated RBC % (auto) 0.0 (0.0-0.2) /100WBC ESR 36 H (0-15) MM/HR PT (10.8-13.0) SEC INR (0.9-1.1) APTT (24.1-38.0) SEC Sodium (135-145) mmol/L Potassium (3.3-5.1) mmol/L Chloride (96-108) mmol/L Carbon Dioxide (22-29) mmol/L Anion Gap (12-20) BUN (9-16) mg/dL Creatinine (0.5-1.4) mg/dL Estim Creat Clear Calc Estimated GFR Random Glucose (60-115) mg/dL Lactic Acid (0.5-2.0) mmol/L Calcium (8.4-10.2) mg/dL Total Bilirubin (0.0-1.0) mg/dL AST (5-37) U/L ALT (0-40) U/L Alkaline Phosphatase (39-117) U/L C-Reactive Protein 9.82 H (< or = 0.50) mg/dL Total Protein (6.5-8.0) g/dL Albumin (3.5-5.0) g/dL COVID-19 ([facility]PERATRIZ) (Negative) COVID-19 Clin Com 07/01/20 07/01/20 07/01/20 Range/Units 23:31 23:31 23:31 WBC (4.8-10.8) X10*3/uL RBC (4.60-5.80) X10*6/uL Hgb (14.0-18.0) g/dl Hct (42-52) % MCV (80-98) fL MCH (27.0-33.0) pg MCHC (31.0-36.0) g/dl RDW (11.0-16.0) % Plt Count (160-400) X10*3/uL MPV (9.4-12.4) fL Immature Gran % (Auto) (0.0-0.4) % Neut % (Auto) (45-73) % Lymph % (Auto) (20-40) % [place] % (Auto) (2-11) % Eos % (Auto) (0-4) % Baso % (Auto) (0-2) % Lymph # (Auto) (1.2-4.9) X10*3/uL [place] # (Auto) (0.1-1.2) X10*3/uL Eos # (Auto) (0.0-0.4) X10*3/uL Baso # (Auto) (0.0-0.2) X10*3/uL Abs Immat Gran (auto) (0.00-0.03) X10*3/uL Absolute Neuts (auto) (2.0-8.3) X10*3/uL Absolute Nucleated RBC (0.0-0.012) X10*3/uL Nucleated RBC % (auto) (0.0-0.2) /100WBC ESR (0-15) MM/HR PT 14.9 H (10.8-13.0) SEC INR 1.3 H (0.9-1.1) APTT 31.4 (24.1-38.0) SEC Sodium 133 L (135-145) mmol/L Potassium 4.0 (3.3-5.1) mmol/L Chloride 96 (96-108) mmol/L Carbon Dioxide 24 (22-29) mmol/L Anion Gap 17 (12-20) BUN 12 (9-16) mg/dL Creatinine 1.02 (0.5-1.4) mg/dL Estim Creat Clear Calc 106.3 Estimated GFR > 60 Random Glucose 130 H D (60-115) mg/dL Lactic Acid 0.7 (0.5-2.0) mmol/L Calcium 8.7 (8.4-10.2) mg/dL Total Bilirubin 0.7 (0.0-1.0) mg/dL AST 26 D (5-37) U/L ALT 14 (0-40) U/L Alkaline Phosphatase 89 (39-117) U/L C-Reactive Protein 9.83 H (< or = 0.50) mg/dL Total Protein 7.3 (6.5-8.0) g/dL Albumin 4.3 (3.5-5.0) g/dL COVID-19 ([facility]AT[facility]Z) (Negative) COVID-19 Clin Com 07/02/20 Range/Units 03:14 WBC (4.8-10.8) X10*3/uL RBC (4.60-5.80) X10*6/uL Hgb (14.0-18.0) g/dl Hct (42-52) % MCV (80-98) fL MCH (27.0-33.0) pg MCHC (31.0-36.0) g/dl RDW (11.0-16.0) % Plt Count (160-400) X10*3/uL MPV (9.4-12.4) fL Immature Gran % (Auto) (0.0-0.4) % Neut % (Auto) (45-73) % Lymph % (Auto) (20-40) % [place] % (Auto) (2-11) % Eos % (Auto) (0-4) % Baso % (Auto) (0-2) % Lymph # (Auto) (1.2-4.9) X10*3/uL [place] # (Auto) (0.1-1.2) X10*3/uL Eos # (Auto) (0.0-0.4) X10*3/uL Baso # (Auto) (0.0-0.2) X10*3/uL Abs Immat Gran (auto) (0.00-0.03) X10*3/uL Absolute Neuts (auto) (2.0-8.3) X10*3/uL Absolute Nucleated RBC (0.0-0.012) X10*3/uL Nucleated RBC % (auto) (0.0-0.2) /100WBC ESR (0-15) MM/HR PT (10.8-13.0) SEC INR (0.9-1.1) APTT (24.1-38.0) SEC Sodium (135-145) mmol/L Potassium (3.3-5.1) mmol/L Chloride (96-108) mmol/L Carbon Dioxide (22-29) mmol/L Anion Gap (12-20) BUN (9-16) mg/dL Creatinine (0.5-1.4) mg/dL Estim Creat Clear Calc Estimated GFR Random Glucose (60-115) mg/dL Lactic Acid (0.5-2.0) mmol/L Calcium (8.4-10.2) mg/dL Total Bilirubin (0.0-1.0) mg/dL AST (5-37) U/L ALT (0-40) U/L Alkaline Phosphatase (39-117) U/L C-Reactive Protein (< or = 0.50) mg/dL Total Protein (6.5-8.0) g/dL Albumin (3.5-5.0) g/dL COVID-19 ([facility]Z) Negative (Negative) COVID-19 Clin Com See Note <Bailee Mejia MD - Last Filed: 07/02/20 06:07> Discharge Plan Discharge Clinical Impression: Cellulitis of hand, left, Periorbital cellulitis <ARACELI Leo - Last Filed: 07/02/20 03:00> Prescriptions: No Action No Known Home Meds RF: 0 <ARACELI Leo - Last Filed: 07/02/20 03:00>
[2020-07-01 23:33] VITALS: BP 122/61; PULSE 92; RESP 18; TEMP 38.3; O2SAT 97
[2020-07-01 23:38] LABS: MANUAL DIFF FLAG NO
[2020-07-01 23:40] LABS: Basophils Percent Auto 0.2 % (0-2); Eosinophils Absolute Auto 0.1 X10*3/uL (0.0-0.4); Eosinophils Percent Auto 0.5 % (0-4); Hematocrit 37.2 % (42-52); Hemoglobin 11.8 g/dl (14.0-18.0); Imm Gran Abs Auto 0.02 X10*3/uL (0.00-0.03); Imm Gran Pct Auto 0.2 % (0.0-0.4); Lymphocytes Absolute Auto 1.3 X10*3/uL (1.2-4.9); Lymphocytes Percent Auto 13.3 % (20-40); Mean Corpuscular HGB Conc 31.7 g/dl (31.0-36.0); Mean Corpuscular Hemoglobin 26.3 pg (27.0-33.0); Mean Platelet Volume 9.1 fL (9.4-12.4); Monocytes Absolute Auto 0.7 X10*3/uL (0.1-1.2); Monocytes Percent Auto 7.7 % (2-11); Neutrophils Absolute Auto 7.3 X10*3/uL (2.0-8.3); Neutrophils Percent Auto 78.1 % (45-73); Platelet Count 264 X10*3/uL (160-400); Red Blood Count 4.48 X10*6/uL (4.60-5.80); Red Cell Distribution Width 15.2 % (11.0-16.0); White Blood Count 9.4 X10*3/uL (4.8-10.8)
[2020-07-01] MEDS: Piperacillin Sodium/Tazobactam 3.375 GM in 0.9 % Sodium Chloride 50 ML IV (23:41)
[2020-07-01 23:49] LABS: INTERNATIONAL NORM RATIO 1.3 (0.9-1.1); Prothrombin Time 14.9 SEC (10.8-13.0)
[2020-07-01 23:51] LABS: Partial Thromboplastin Time 31.4 SEC (24.1-38.0)
[2020-07-02] VITALS (8 sets, daily range): BP systolic 107–139; BP diastolic 60–73; PULSE 72–86; RESP 16–18; TEMP 36.7–37.6; O2SAT 96–100
[2020-07-02] MEDS: vancomycin HCL 1,000 MG in 0.9 % Sodium Chloride 250 ML 270 MG IV ×3 (00:04→22:56)
[2020-07-02 00:16] LABS: Lactic Acid 0.7 mmol/L (0.5-2.0)
[2020-07-02 00:17] LABS: C Reactive Protein 9.82 mg/dL (< or = 0.50)
[2020-07-02 00:21] LABS: Alanine Aminotransferase 14 U/L (0-40); Albumin Level 4.3 g/dL (3.5-5.0); Alkaline Phosphatase 89 U/L (39-117); Anion Gap 17 (12-20); Aspartate Amino Transferase 26 U/L (5-37); Bilirubin Total 0.7 mg/dL (0.0-1.0); Blood Urea Nitrogen 12 mg/dL (9-16); C Reactive Protein 9.83 mg/dL (< or = 0.50); Calcium 8.7 mg/dL (8.4-10.2); Carbon Dioxide 24 mmol/L (22-29); Chloride 96 mmol/L (96-108); Creatinine Clr Calc Pharmacy 106.3; Estimated Glomerular Filt Rate > 60; Glucose Random 130 mg/dL (60-115); Sodium 133 mmol/L (135-145); Total Protein 7.3 g/dL (6.5-8.0)
[2020-07-02 00:41] LABS: Erythrocyte Sedimentation Rate 36 MM/HR (0-15)
--- NOTE | 2020-07-02 03:05 | PC.NURSE ---
Report taken from Estefany, dyana RN resuming care. Pt sleeping in bed at this time in NAD, visible chest rise noted. Awaiting bed assignment, continue to monitor.
--- NOTE | 2020-07-02 03:15 | PC.NURSE ---
Covid swab obtained and sent.
[2020-07-02 03:34] LABS: IDNOW Serial# 9DD0AD1C
[2020-07-02 03:35] LABS: COVID-19 Test Negative (Negative)
--- NOTE | 2020-07-02 09:39 | PC.NURSE ---
hospitalist evaluating patient at this time
--- NOTE | 2020-07-02 10:10 | P.HPHOSP_ITS ---
History of Present Illness Date of Service: 07/02/20 Chief Complaint: Swollen right eye and left hand cellulitis 34 year old male with IVDA who was seen at [facility] ED for swollen right eye and left hand cellulitis and discharge from ED and came to [facility] ED. He says that he has noticed the swelling of the eye and hand for 3 days now, she admit to injecting drugs in the arm but he does not relate any tooth problem. The left eye is so swollen that he is not able to open the eye. Facial CT shows pre-septal changes and no abscess, US of the left eye doesn't show DVT and CT doesn't show abscess. He has receivied IV Vanco and Zosyn x 1 in ED. Blood cultures are pending. Review of Systems Review of Systems: Gen: no fever eye:right eye swelling Resp: no sob, no cough CV: no chest, no BARTON, no leg edema GI: No n/v, no abd pain Neuro: No confusion MSK: swollenleft arm Yes all other systems are reviewed and are negative [facility] Medical History IVDU (intravenous drug user) Pertinent family history: Denies pertienent family history Social History Alcohol intake: current Alcohol intake frequency: 3 or more drinks per day Alcohol type: beer Smoking Status: Current every day smoker Use of substances other than those prescribed or required for medical reasons: Yes Substance Use Type: Crack/Cocaine, Heroin, IV Drugs, Marijuana and Opiates Substance Use Frequency: Chronic Longstanding Last Used Substance: Just Prior to Admission Advance Directives: No Advance Directives Information Provided: No Meds Allergies Allergy/AdvReac Type Severity Reaction Status Date / Time No Known Allergies Allergy Unverified 12/27/19 17:30 Active Medications: Current Medications Generic Name Dose Route Start Last Admin Trade Name Freq PRN Reason Stop Dose Admin Vancomycin HCl 1,000 mg/ 270 mls @ 270 mls/hr 07/02/20 10:00 Sodium Chloride IV 07/02/20 10:59 ONCE ONE Lorazepam 0.5 mg 07/02/20 09:57 Lorazepam 0.5 Mg Tablet PO Q6H PRN Anxiety Pharmacy Consult 1 each 07/02/20 10:00 Consult Rx Vancomycin Dosing MISCELLANE DAILY PRN Consult order Home Medications Medication Instructions Recorded Confirmed Last Taken Type No Known Home Meds 07/02/20 07/02/20 Unknown History Physical Exam Vital Signs and Narrative: Vital Signs: Last Vital Signs Temp 100.9 F H 07/01/20 23:33 Pulse 81 07/02/20 06:44 Resp 16 07/02/20 06:44 BP 127/60 07/02/20 06:44 Pulse Ox 96 07/02/20 06:44 Body Mass Index 24.3 Constitutional Awake and Alert, No apparent distress Mouth no dental abscess Neck Supple, No lymphadenopathy Cardiovascular RRR, No M/R/G, S1 S2, No S3 S4, No pedal edema Respiratory Lungs clear, No respiratory distress Gastrointestinal Non tender, Non-distended Skin No rash Neurological Alert & oriented x3 Psychological Appropriate affect Results Labs CBC and Chem 7: 07/01/20 23:31 07/01/20 23:31 Labs: Laboratory Results - last 24 hr 07/01/20 07/01/20 07/01/20 23:30 23:30 23:31 MCV 83.0 MCH 26.3 L MCHC 31.7 RDW 15.2 Plt Count 264 MPV 9.1 L Immature Gran % (Auto) 0.2 Neut % (Auto) 78.1 H Lymph % (Auto) 13.3 L Antelope % (Auto) 7.7 Eos % (Auto) 0.5 Baso % (Auto) 0.2 Lymph # (Auto) 1.3 Antelope # (Auto) 0.7 Eos # (Auto) 0.1 Baso # (Auto) 0.0 Abs Immat Gran (auto) 0.02 Absolute Neuts (auto) 7.3 Absolute Nucleated RBC 0.000 Nucleated RBC % (auto) 0.0 ESR 36 H PT INR APTT Anion Gap Estim Creat Clear Calc Estimated GFR Random Glucose Lactic Acid Calcium Total Bilirubin AST ALT Alkaline Phosphatase C-Reactive Protein 9.82 H Total Protein Albumin COVID-19 ([facility]PERATRIZ) COVID-19 Clin Com 07/01/20 07/01/20 07/01/20 23:31 23:31 23:31 MCV MCH MCHC RDW Plt Count MPV Immature Gran % (Auto) Neut % (Auto) Lymph % (Auto) Antelope % (Auto) Eos % (Auto) Baso % (Auto) Lymph # (Auto) Antelope # (Auto) Eos # (Auto) Baso # (Auto) Abs Immat Gran (auto) Absolute Neuts (auto) Absolute Nucleated RBC Nucleated RBC % (auto) ESR PT 14.9 H INR 1.3 H APTT 31.4 Anion Gap 17 Estim Creat Clear Calc 106.3 Estimated GFR > 60 Random Glucose 130 H D Lactic Acid 0.7 Calcium 8.7 Total Bilirubin 0.7 AST 26 D ALT 14 Alkaline Phosphatase 89 C-Reactive Protein 9.83 H Total Protein 7.3 Albumin 4.3 COVID-19 (EMPERATRIZ) COVID-19 Clin Com 07/02/20 03:14 MCV MCH MCHC RDW Plt Count MPV Immature Gran % (Auto) Neut % (Auto) Lymph % (Auto) Antelope % (Auto) Eos % (Auto) Baso % (Auto) Lymph # (Auto) Antelope # (Auto) Eos # (Auto) Baso # (Auto) Abs Immat Gran (auto) Absolute Neuts (auto) Absolute Nucleated RBC Nucleated RBC % (auto) ESR PT INR APTT Anion Gap Estim Creat Clear Calc Estimated GFR Random Glucose Lactic Acid Calcium Total Bilirubin AST ALT Alkaline Phosphatase C-Reactive Protein Total Protein Albumin COVID-19 (EMPERATRIZ) Negative COVID-19 Clin Com See Note Imaging Radiologist's Impressions: Impressions Venous Duplex 07/02/20 00:00 IMPRESSION: No DVT demonstrated in the left upper extremity. Face CT 07/02/20 00:40 IMPRESSION: Right preseptal cellulitis without intraconal abnormalities. No acute intracranial process or discrete facial bone fracture. Forearm CT 07/02/20 00:40 IMPRESSION: No drainable fluid collections are identified. There are no osseous abnormalities. There are no fractures. There aren't no areas of cortical destruction. Hand CT 07/02/20 00:40 IMPRESSION: No drainable fluid collections are identified. There are no osseous abnormalities. There are no fractures. There aren't no areas of cortical destruction. Assessment and Plan (1) Periorbital cellulitis: Status: Acute (2) Cellulitis of hand, left: Status: Acute (3) IVDU (intravenous drug user): Status: Acute 34 year old male with IVD drug use here with pre-septal cellulitis and right hand cellulitis likely related to drug use. Plan: Pre-septal Cellulitis and Left hand cellulitis IV Vanco and Ceftriaxone and Flgyl Consult ID Monitor blood culture IVDA--risk of withdrwal -Ativan for anxiety -Clonidine for withdrawal symptoms -Offered addiction service but he delcine Tobacco use desorder--NRT Low risk for DVT, encougage ambulation and if not moving then Lovenox
[2020-07-02] MEDS: cefTRIAXone sodium 1 GM in 0.9 % Sodium Chloride 50 ML IV (14:10)
[2020-07-02] MEDS: metroNIDAZOLE/NS 500 MG/100 ML PIGGYBACK 100 MG IV ×2 (14:49→21:55)
[2020-07-02] MEDS: 0.9 % Sodium Chloride Flush 3 ML SYRINGE IVFLUSH (14:49)
--- NOTE | 2020-07-02 15:24 | W.PM.IDCN ---
History of Present Illness Data of Consult Service Date: 07/02/20 Requesting physician: Roney Cleary Primary Care Provider: None Physician HPI Reason for consult: preseptal cellulitis He presents to hospital with swollen right eye and left hand He is a person who uses IV drugs and has needle meraz inner right brow and dorsal surface of left hand He has had symptoms for two days,worse last day He has tox screen positive for benzodiazepines,opioids and cocaine. His alcohol level is 0 Review of Systems Review of Systems: Yes Unobtainable due to mental status PMFSH Past Medical History Medical History IVDU (intravenous drug user) Family History Family history: reviewed and not pertinent Social History Social History Household Members: Spouse Housing: House Do you presently have visiting nurse or other home services: No Alcohol intake: current Alcohol intake frequency: 3 or more drinks per day Alcohol type: beer Smoking Status: Current every day smoker Use of substances other than those prescribed or required for medical reasons: Yes Substance Use Type: Crack/Cocaine and Heroin Substance Use Frequency: Daily Last Used Substance: Hours (ago) Currently Displaying Signs/Symptoms of Drug Intoxication Withdrawal: No Any prior treatment program specific to substance use: Yes Have you been hit, kicked, punched, or otherwise hurt by someone within the past year? If so, by whom?: No Do you feel safe in your current relationship?: Yes Is there a partner from a previous relationship who is making you feel unsafe now?: No Are you made to feel afraid or neglected: No Advance Directives: No Advance Directives Information Provided: No Do you have thoughts of harming others: None Do you have a plan to hurt others: No Plan Recently lost weight without trying: No Meds Allergies Allergy/AdvReac Type Severity Reaction Status Date / Time No Known Allergies Allergy Unverified 12/27/19 17:30 Active Medications: Current Medications Generic Name Dose Route Start Last Admin Trade Name Freq PRN Reason Stop Dose Admin Clonidine HCl 0.1 mg 07/02/20 11:29 Clonidine Hcl 0.1 Mg Tablet PO Q6H PRN Shaneka Protocol Vancomycin HCl 1,000 mg/ 270 mls @ 270 mls/hr 07/02/20 23:00 Sodium Chloride IV Q12H PETTY Ceftriaxone Sodium 1 gm/ 50 mls @ 100 mls/hr 07/02/20 14:00 07/02/20 14:51 Sodium Chloride IV Infused Q24H PETTY Infusion Metronidazole 500 mg in 100 mls @ 100 mls/hr 07/02/20 15:00 07/02/20 14:49 Flagyl IV 100 mls/hr Q8H PETTY Administration Lorazepam 0.5 mg 07/02/20 09:57 Lorazepam 0.5 Mg Tablet PO Q6H PRN Anxiety Morphine Sulfate 2 mg 07/02/20 11:29 Morphine Sulfate 2 Mg/Ml Cartridge IVPUSH Q4H PRN Pain, Severe (Pain Scale 7-10) Pharmacy Consult 1 each 07/02/20 10:00 Consult Rx Vancomycin Dosing MISCELLANE DAILY PRN Consult order Sodium Chloride 3 ml 07/02/20 16:00 07/02/20 14:49 0.9 % Sodium Chloride Flush 3 Ml Syringe IVFLUSH 3 ml QSHIFT PETTY Administration Home Medications Medication Instructions Recorded Confirmed Last Taken Type No Known Home Meds 07/02/20 07/02/20 Unknown History Physical Exam Vital Signs: Vital Signs: Last Vital Signs Temp 99.6 F 07/02/20 12:40 Pulse 72 07/02/20 12:40 Resp 17 07/02/20 12:40 BP 125/60 07/02/20 12:40 Pulse Ox 97 07/02/20 12:40 Body Mass Index 24.3 Const: General: cooperative Orientation/consciousness: patient oriented x3 HENMT: Other: swollen right eye,completely shut Mouth: Normal oral and palatal mucosa present Eyes: Other: cant open eye ,right Resp: Effort & Inspection: normal respiratory effort Cardio: Rate: regular rate Rhythm: regular rhythm GI: Palpation (GI): Soft to palpation and nontender : General: Yes no CVA tenderness Back/Spine/Pelvis: Back: no CVA tenderness Skin: General skin exam: no rashes or lesions noted Neuro: General: patient oriented x3 Results Labs CBC & Chem 7: 07/01/20 23:31 07/01/20 23:31 Labs: Short CBC 07/01/20 Range/Units 23:31 WBC 9.4 (4.8-10.8) X10*3/uL Hgb 11.8 L (14.0-18.0) g/dl Hct 37.2 L (42-52) % Plt Count 264 (160-400) X10*3/uL BMP 07/01/20 23:31 Sodium 133 L Potassium 4.0 Chloride 96 Carbon Dioxide 24 BUN 12 Creatinine 1.02 Calcium 8.7 Liver Function 07/01/20 Range/Units 23:31 Total Bilirubin 0.7 (0.0-1.0) mg/dL AST 26 D (5-37) U/L ALT 14 (0-40) U/L Alkaline Phosphatase 89 (39-117) U/L Albumin 4.3 (3.5-5.0) g/dL Assessment and Plan (1) Cellulitis of hand, left: Status: Acute (2) Periorbital cellulitis: Problem details: There is no orbital abscess Preseptal cellulitis possibly due to MRSA as well as anerobes and gram negative He has IVDU as concern Status: Acute Metronidazole and Ceftriaxone or Levaquin and Vancomycin for now,duration to be determined Await blood cultures Addiction consult while in hospital (3) IVDU (intravenous drug user): Status: Acute
[2020-07-02] MEDS: LORazepam 0.5 MG TABLET PO (15:34)
[2020-07-03] MEDS: 0.9 % Sodium Chloride Flush 3 ML SYRINGE IVFLUSH ×2 (00:06→07:42)
[2020-07-03] MEDS: LORazepam 0.5 MG TABLET PO ×3 (00:09→11:11)
[2020-07-03] MEDS: metroNIDAZOLE/NS 500 MG/100 ML PIGGYBACK 100 MG IV (06:32)
[2020-07-03 08:00] VITALS: BP 127/69; PULSE 83; RESP 18; TEMP 36.6; O2SAT 100
--- NOTE | 2020-07-03 09:02 | MHC.CM.PN ---
PATIENT IS SLEEPING. CASE MANAGEMENT ATTEMPTING TO PERFORM ASSESSMENT; HOWEVER PATIENT IS NOT RESPONDING TO THIS BALE COVERER'S ATTEMPTS. ASSESSMENT TO BE COMPLETED BY RECORDS REVIEW. CASE MANAGEMENT CARD LEFT BEDSIDE FOR PATIENT IF THERE ARE DISCHARGE NEEDS HE WANTS TO DISCUSS.
--- NOTE | 2020-07-03 10:12 | HO.PM.IMPN ---
Subjective Subjective Date of Service: 08/09/20 Interval History: Seen in f/u for pre-septal cellulitis and left hand cellulitis in setting of IV drug use. Swelling in the eye and hand is better and no signs of withdrawal Review of Systems Gen: no fever swollen right eye Resp: no sob, no cough CV: no chest, no BARTON, no leg edema GI: No n/v, no abd pain Neuro: No confusion swollen left hand Physical Exam Vital Signs: Vital Signs: Last Vital Signs Temp 97.8 F 07/03/20 08:00 Pulse 83 07/03/20 08:00 Resp 18 07/03/20 08:00 BP 127/69 07/03/20 08:00 Pulse Ox 100 07/03/20 08:00 Body Mass Index 24.3 Const: General: cooperative and no acute distress Cardio: Rate: regular rate Rhythm: regular rhythm Heart sounds: S1 normal heart sound present and S2 normal heart sound present Objective Data Current Medications Generic Name Dose Route Start Last Admin Trade Name Freq PRN Reason Stop Dose Admin Clonidine HCl 0.1 mg 07/02/20 11:29 Clonidine Hcl 0.1 Mg Tablet PO Q6H PRN Shaneka Protocol Vancomycin HCl 1,000 mg/ 270 mls @ 270 mls/hr 07/02/20 23:00 07/03/20 00:12 Sodium Chloride IV Infused Q12H PETTY Infusion Ceftriaxone Sodium 1 gm/ 50 mls @ 100 mls/hr 07/02/20 14:00 07/02/20 14:51 Sodium Chloride IV Infused Q24H PETTY Infusion Metronidazole 500 mg in 100 mls @ 100 mls/hr 07/02/20 15:00 07/03/20 07:40 Flagyl IV Infused Q8H PETTY Infusion Lorazepam 0.5 mg 07/02/20 09:57 07/03/20 06:39 Lorazepam 0.5 Mg Tablet PO 0.5 mg Q6H PRN Administration Anxiety Morphine Sulfate 2 mg 07/02/20 11:29 Morphine Sulfate 2 Mg/Ml Cartridge IVPUSH Q4H PRN Pain, Severe (Pain Scale 7-10) Pharmacy Consult 1 each 07/02/20 10:00 Consult Rx Vancomycin Dosing MISCELLANE DAILY PRN Consult order Sodium Chloride 3 ml 07/02/20 16:00 07/03/20 07:42 0.9 % Sodium Chloride Flush 3 Ml Syringe IVFLUSH 3 ml QSHIFT PETTY Administration Labs CBC & Chem 7: 07/01/20 23:31 07/01/20 23:31 Microbiology Microbiology Results: Microbiology 07/01/20 23:31 Blood - Venous Blood Culture - Preliminary No growth after 24 hours. 07/01/20 23:31 Blood - Venous Blood Culture - Preliminary No growth after 24 hours. Assessment and Plan (1) Periorbital cellulitis: Problem details: There is no orbital abscess Preseptal cellulitis possibly due to MRSA as well as anerobes and gram negative He has IVDU as concern Status: Acute (2) Cellulitis of hand, left: Status: Acute (3) IVDU (intravenous drug user): Status: Acute Assessment and Plan: 34 year old male with IVD drug use here with pre-septal cellulitis and right hand cellulitis likely related to drug use. Plan: Pre-septal Cellulitis and Left hand cellulitis IV Vanco and Ceftriaxone and Flgyl Consult ID Monitor blood culture IVDA--risk of withdrwal -Ativan for anxiety -Clonidine for withdrawal symptoms -Offered addiction service but he delcine Tobacco use desorder--NRT Low risk for DVT, encougage ambulation and if not moving then Lovenox
[2020-07-03 10:47] LABS: Vancomycin Trough 3.5 mcg/mL (10.0-20.0)
[2020-07-03] MEDS: vancomycin HCL 1,500 MG in 0.9 % Sodium Chloride 500 ML 333.33 MG IV (11:11)
--- NOTE | 2020-07-03 12:42 | PC.NURSE ---
1230 Patient states that he wants to leave AMA. ID doctor at bedside. This RN extensively educated pt on risks associated with leaving AMA. patient adamant, wants to leave. hospitalist advised. Hospitalist met with patient who refused to stay for antibiotic treatment to cellulites of right eye and left hand. Pt advised to grain picker antibiotics at [facility] pharmacy in [place]. IV line removed.
--- NOTE | 2020-07-03 12:43 | MHC.CM.PN ---
PATIENT IS LEAVING AGAINST MEDICAL ADVICE. PATIENT DENIES NEED FOR CASE MANAGEMENT ASSESSMENT OR DISCHARGE NEEDS. RN AWARE OF THE PLAN.
--- NOTE | 2020-07-03 18:53 | PM.DS ---
DS: Providers Provider Date of Service: 07/03/20 Date of admission: 07/02/20 09:56 Primary care physician: None Physician Consults: 07/02/20 09:57 Consult to Infectious Diseases Routine Consulting Provider: Erin Bee Reason for consultation: bal orbital cellulitis Has provider been notified: No DS: Diagnosis Discharge Diagnosis (1) Periorbital cellulitis: Status: Acute (2) Cellulitis of hand, left: Status: Acute (3) IVDU (intravenous drug user): Status: Acute DS: Summary Hospital Course Hospital Course: Chief Complaint: Swollen right eye and left hand cellulitis 34 year old male with IVDA who was seen at [facility] ED for swollen right eye and left hand cellulitis and discharge from ED and came to [facility] ED. He says that he has noticed the swelling of the eye and hand for 3 days now, she admit to injecting drugs in the arm but he does not relate any tooth problem. The left eye is so swollen that he is not able to open the eye. Facial CT shows pre-septal changes and no abscess, US? of the left eye doesn't show DVT and CT doesn't show abscess. He has receivied IV Vanco and Zosyn x 1 in ED. Blood cultures are pending. Hospital course: While being treated with IV antibiotics in the hospital he decided to leave against medical advise the following, risk of leaving against adivsed was discussed with him including the record also showed that he was prescribed antibiotics send directly to the hospital Final diagnoses; Pre-septal Cellulitis Left hand cellulitis Opioid dependence Time Spent with Patient Time attestation: Total time spent providing and/or coordinating discharge services: Discharge coordination time: Greater than 30 minutes Quality: Safe Use of Opioids Does Pt have an Active Cancer Diagnosis on the Problem List?: No Quality: Stroke Does the patient have a stroke diagnosis?: No Physical Exam Vital Signs: Vital Signs: Last Vital Signs Temp 97.8 F 07/03/20 08:00 Pulse 83 07/03/20 08:00 Resp 18 07/03/20 08:00 BP 127/69 07/03/20 08:00 Pulse Ox 100 07/03/20 08:00 BMI result Body Mass Index 24.3 Discharge Plan Discharge Anticipated Discharge Date/Time: 07/03/20 12:33 Patient Disposition: Left Against Medical Advice Discharge Diagnosis: Facial cellulitis related to IV drug Referrals: Physician,None [Primary Care Provider] - Discharge Medications: No Action sulfamethoxazole-trimethoprim [Bactrim DS] 800-160 mg Tablet 1 tab PO BID 0RF Rx Instructions: X 10 DAYS cephalexin [Keflex] 500 mg Capsule 500 mg PO QID 0RF Rx Instructions: X 10 DAYS Discharge Orders: Discharge Order (Routine); Ordered 07/03/20 Ordered By: Roney Cleary Diet: advance to usual diet Activity on Discharge: As tolerated Care Plan Goals: Resolution of Cellulitis Health Concerns: Substance dependence Plan of Treatment: Take Bactrim and Keflex as directed ( You have prescription waiting at [facility] on [facility] in [place]) Assessment: As above Discharge Date/Time: 07/03/20 13:02
== END 2020-07-03 13:02 | disposition left against medical advice (07) | DRG 383 ==
LOC: HO.ED 23:09 → HO.EDOVER 07-02 10:10 → HO.S3 07-02 10:57
PROVIDERS: Physician Assistant; Admitting Provider Internal Medicine; Emergency Provider Emergency Medicine; Visit Provider Internal Medicine
DX: L03.213 Periorbital cellulitis (principal); F17.210 Nicotine dependence, cigarettes, uncomplicated; L03.114 Cellulitis of left upper limb; Z20.822 Contact with and (suspected) exposure to COVID-19; Z71.6 Tobacco abuse counseling; F19.10 Other psychoactive substance abuse, uncomplicated
CPT/HCPCS: 36415; 70487; 73201; 80053; 80202; 83605; 85025; 85610; 85652; 85730; 86140; 87040; 87635; 93971; 96365; 96368; 99284; 99285; J0696; J2543; J3370; Q9967

== ENCOUNTER 2021-09-13 12:22 | Emergency (ER) | payer MEDICAID, SELFPAY ==
[2021-09-13 12:27] VITALS: BP 168/114; PULSE 106; O2SAT 96
[2021-09-13 12:29] VITALS: BP 122/80; PULSE 97; RESP 14; TEMP 36.8; O2SAT 94; BMI 23.6
--- NOTE | 2021-09-13 13:41 | MHC.RECOVSUP ---
Recovery Support note: Patient is a 35 year old Bahamian speaking male who presented to [facility] ED from [facility] after presenting for a detox admission and appearing to be under the influence of multiple substances. [facility] reports patient cannot return until he has gotten medically worked up and his labs sent over. Last admission slot for today is 1445. Due to the time it will take to get labs patient will not be able to make it for that time. Patient expressed his frustration regarding this situation. This travel writer offered to refer patient to other [facility] facilities and patient declined. Katie at [facility] reports patient can come for admission at 1000 tomorrow as long as he gets the lab work done here. Patient reports he can stay with his aunt until then. Discussed case with ED physician. Plan for patient to get labs done and discharge to his aunt to follow up with [facility] tomorrow for ATS admission. This travel writer will fax patient information to facility once it is available.
--- NOTE | 2021-09-13 14:02 | ED_ITS ---
HPI - General Adult General Chief complaint: ETOH/Substance Use Stated complaint: OPIOID WITHDRAWAL,LAST USE 10AM PER EMS Time Seen by Provider: 09/13/21 13:47 Source: patient Mode of arrival: ambulatory History of Present Illness HPI narrative: 35-year-old male brought in by EMS because he was trying to get a bed at [facility] to get into a detox program and they were declining his bed until he was medically evaluated. Patient has no acute medical complaints at this time, but on discussion between the girls swimming coach and the facility they are requesting lab work. Patient states that he last used heroin at 10:00 and used methamphet amines and cocaine yesterday as well as today. He denies any with crawl symptoms currently denies any nausea, vomiting, abdominal pain or sweating. Related Data Home Medications Medication Instructions Recorded Confirmed cephalexin 500 mg capsule 500 mg PO QID 07/03/20 07/03/20 sulfamethoxazole 800 1 tab PO BID 07/03/20 07/03/20 mg-trimethoprim 160 mg tablet (Bactrim DS) Allergies Allergy/AdvReac Type Severity Reaction Status Date / Time No Known Allergies Allergy Unverified 12/27/19 17:30 Review of Systems Review of Systems: Pertinent positives and negatives as stated in HPI 10 point review of systems is otherwise negative. [facility] Past Medical History Source: nursing notes reviewed Medical History IVDU (intravenous drug user) Social History Social History Household Members: Spouse Housing: House Do you presently have visiting nurse or other home services: No Alcohol intake: current Alcohol intake frequency: a few times a week Alcohol type: beer and hard liquor Patient Tobacco Use Status: Current everyday Tobacco user Smoked in Last 30 Days: Yes Use of substances other than those prescribed or required for medical reasons: Yes Substance Use Type: Amphetamines, Crack/Cocaine and Heroin Substance Use Frequency: Daily Last Used Substance: Hours (ago) Any prior treatment program specific to substance use: Yes Advance Directives: No Advance Directives Information Provided: No service: No Current occupational status: unemployed Physical Exam ED Vital Signs: Vital Signs - 24 hr 09/13/21 12:29 Temperature 98.2 F Pulse Rate 97 Respiratory Rate 14 Blood Pressure 122/80 Pulse Oximetry 94 BMI result Body Mass Index 23.6 VITAL SIGNS: Reviewed. GENERAL: Slightly twitchy, Well developed, well nourished, in no acute distress. HEAD: Normocephalic/atraumatic EYES: PERRLA, EOMI EARS: Ext canals without abnormality NOSE: Nares patent bilateral OROPHARYNX: no oral lesions noted, posterior pharynx clear NECK: Supple, no adenopathy LUNGS: Normal breath sounds. No adventitious sounds or accessory muscle use. SpO2<94> CARDIOVASCULAR: Regular rate and rhythm without noted murmurs ABDOMEN: Soft, non-tender, non-distended with bowel sounds. NEUROLOGIC: Alert and oriented x 4. Strength and sensation to light touch were grossly intact x 4. Course Course Course Narrative: 35-year-old male with history and clinical presentation consistent with polysubstance use disorder, currently under the influence, evaluated by the girls swimming coach and currently being requested to obtain lab work for detox program with bed assignment tomorrow at [facility]. As per the girls swimming coach and patient he has a safe ride home from his aunt and patient denies any current medical complaints such as shortness of breath/chest pain/palpitations. He is neither suicidal or undergoing any AVH at this time. Review of all investigations otherwise without acute findings. Medical Decision Making Lab Data Result diagrams: 09/13/21 14:31 09/13/21 14:31 Labs: Lab Results 09/13/21 09/13/21 09/13/21 Range/Units 14:05 14:05 14:31 WBC 5.2 (4.8-10.8) X10*3/uL RBC 4.47 L (4.60-5.80) X10*6/uL Hgb 11.5 L (14.0-18.0) g/dl Hct 36.0 L (42.0-52.0) % MCV 80.5 (80.0-98.0) fL MCH 25.7 L (27.0-33.0) pg MCHC 31.9 (31.0-36.0) g/dl RDW 15.6 (11.0-16.0) % Plt Count 259 (160-400) X10*3/uL MPV 9.8 (9.4-12.4) fL Immature Gran % (Auto) 0.2 (0.0-0.4) % Neut % (Auto) 53.4 (45-73) % Lymph % (Auto) 30.0 (20-40) % Arthur % (Auto) 13.7 H (2-11) % Eos % (Auto) 2.1 (0-4) % Baso % (Auto) 0.6 (0-2) % Lymph # (Auto) 1.6 (1.2-4.9) X10*3/uL Arthur # (Auto) 0.7 (0.1-1.2) X10*3/uL Eos # (Auto) 0.1 (0.0-0.4) X10*3/uL Baso # (Auto) 0.0 (0.0-0.2) X10*3/uL Abs Immat Gran (auto) 0.01 (0.00-0.03) X10*3/uL Absolute Neuts (auto) 2.8 (2.0-8.3) x10*3/uL Absolute Nucleated RBC 0.000 (0.0-0.012) X10*3/uL Nucleated RBC % (auto) 0.0 (0.0-0.2) /100WBC Sodium (135-145) mmol/L Potassium (3.3-5.1) mmol/L Chloride (96-108) mmol/L Carbon Dioxide (22-29) mmol/L Anion Gap (12-20) BUN (9-16) mg/dL Creatinine (0.5-1.4) mg/dL Estim Creat Clear Calc Estimated GFR Random Glucose (60-115) mg/dL Calcium (8.4-10.2) mg/dL Total Bilirubin (0.0-1.0) mg/dL AST (5-37) U/L ALT (0-40) U/L Alkaline Phosphatase (39-117) U/L Total Protein (6.5-8.0) g/dL Albumin (3.5-5.0) g/dL Urine Opiates Screen POSITIVE H (Not Detect) Urine Fentanyl Screen POSITIVE H (Not Detect) Ur Barbiturates Screen Not Detected (Not Detect) Ur Phencyclidine Scrn Not Detected (Not Detect) Ur Amphetamines Screen POSITIVE H (Not Detect) U Benzodiazepines Scrn Not Detected (Not Detect) Urine Cocaine Screen POSITIVE H (Not Detect) U Marijuana (THC) Screen Not Detected (Not Detect) Ethyl Alcohol mg/dL COVID-19 (EMPERATRIZ) Negative (Negative) COVID-19 Clin Com See Note 09/13/21 09/13/21 Range/Units 14:31 14:31 WBC (4.8-10.8) X10*3/uL RBC (4.60-5.80) X10*6/uL Hgb (14.0-18.0) g/dl Hct (42.0-52.0) % MCV (80.0-98.0) fL MCH (27.0-33.0) pg MCHC (31.0-36.0) g/dl RDW (11.0-16.0) % Plt Count (160-400) X10*3/uL MPV (9.4-12.4) fL Immature Gran % (Auto) (0.0-0.4) % Neut % (Auto) (45-73) % Lymph % (Auto) (20-40) % Arthur % (Auto) (2-11) % Eos % (Auto) (0-4) % Baso % (Auto) (0-2) % Lymph # (Auto) (1.2-4.9) X10*3/uL Arthur # (Auto) (0.1-1.2) X10*3/uL Eos # (Auto) (0.0-0.4) X10*3/uL Baso # (Auto) (0.0-0.2) X10*3/uL Abs Immat Gran (auto) (0.00-0.03) X10*3/uL Absolute Neuts (auto) (2.0-8.3) x10*3/uL Absolute Nucleated RBC (0.0-0.012) X10*3/uL Nucleated RBC % (auto) (0.0-0.2) /100WBC Sodium 137 (135-145) mmol/L Potassium 5.1 D (3.3-5.1) mmol/L Chloride 100 (96-108) mmol/L Carbon Dioxide 24 (22-29) mmol/L Anion Gap 18 (12-20) BUN 27 H (9-16) mg/dL Creatinine 1.29 (0.5-1.4) mg/dL Estim Creat Clear Calc 80.6 Estimated GFR > 60 Random Glucose 88 (60-115) mg/dL Calcium 9.5 D (8.4-10.2) mg/dL Total Bilirubin 0.6 (0.0-1.0) mg/dL AST 39 H D (5-37) U/L ALT 18 (0-40) U/L Alkaline Phosphatase 122 H D (39-117) U/L Total Protein 8.0 (6.5-8.0) g/dL Albumin 4.6 (3.5-5.0) g/dL Urine Opiates Screen (Not Detect) Urine Fentanyl Screen (Not Detect) Ur Barbiturates Screen (Not Detect) Ur Phencyclidine Scrn (Not Detect) Ur Amphetamines Screen (Not Detect) U Benzodiazepines Scrn (Not Detect) Urine Cocaine Screen (Not Detect) U Marijuana (THC) Screen (Not Detect) Ethyl Alcohol < 10 mg/dL COVID-19 (EMPERATRIZ) (Negative) COVID-19 Clin Com Discharge Plan Discharge Clinical Impression: Substance use disorder, IVDU (intravenous drug user), Encounter for medical assessment Patient Disposition: Home, Self-Care Instructions: Polysubstance Abuse (ED) Additional Instructions: 1. You have had lab work as well as COVID-19 testing, the latter which is negative. 2. Please follow-up with [facility] for admission for detox tomorrow as scheduled. Return to the ER for any acute worsening of your symptoms. Prescriptions: No Action sulfamethoxazole-trimethoprim [Bactrim DS] 800-160 mg Tablet 1 tab PO BID 0RF Rx Instructions: X 10 DAYS cephalexin [Keflex] 500 mg Capsule 500 mg PO QID 0RF Rx Instructions: X 10 DAYS Referrals: Tamia Palacios NP [Primary Care Provider] -
[2021-09-13 14:26] LABS: Amphetamine Screen Urine POSITIVE (Not Detect); Barbiturates, Urine Not Detected (Not Detect); Benzodiazepines Screen Urine Not Detected (Not Detect); Cannabinoid Screen Urine Not Detected (Not Detect); Cocaine Screen Urine POSITIVE (Not Detect); Fentanyl, urine POSITIVE (Not Detect); Opiate Screen Urine POSITIVE (Not Detect); Phencyclidine Screen Urine Not Detected (Not Detect)
[2021-09-13 14:28] LABS: COVID-19 Test Negative (Negative)
[2021-09-13 14:36] LABS: MANUAL DIFF FLAG NO
[2021-09-13 14:39] LABS: Basophils Percent Auto 0.6 % (0-2); Eosinophils Absolute Auto 0.1 X10*3/uL (0.0-0.4); Eosinophils Percent Auto 2.1 % (0-4); Hemoglobin 11.5 g/dl (14.0-18.0); Imm Gran Abs Auto 0.01 X10*3/uL (0.00-0.03); Imm Gran Pct Auto 0.2 % (0.0-0.4); Lymphocytes Absolute Auto 1.6 X10*3/uL (1.2-4.9); Mean Corpuscular HGB Conc 31.9 g/dl (31.0-36.0); Mean Corpuscular Hemoglobin 25.7 pg (27.0-33.0); Mean Corpuscular Volume 80.5 fL (80.0-98.0); Mean Platelet Volume 9.8 fL (9.4-12.4); Monocytes Absolute Auto 0.7 X10*3/uL (0.1-1.2); Monocytes Percent Auto 13.7 % (2-11); Neutrophils Absolute Auto 2.8 x10*3/uL (2.0-8.3); Neutrophils Percent Auto 53.4 % (45-73); Platelet Count 259 X10*3/uL (160-400); Red Blood Count 4.47 X10*6/uL (4.60-5.80); Red Cell Distribution Width 15.6 % (11.0-16.0); White Blood Count 5.2 X10*3/uL (4.8-10.8)
[2021-09-13 14:48] LABS: Ethanol < 10 mg/dL
[2021-09-13 14:52] LABS: Alanine Aminotransferase 18 U/L (0-40); Albumin Level 4.6 g/dL (3.5-5.0); Alkaline Phosphatase 122 U/L (39-117); Anion Gap 18 (12-20); Aspartate Amino Transferase 39 U/L (5-37); Bilirubin Total 0.6 mg/dL (0.0-1.0); Blood Urea Nitrogen 27 mg/dL (9-16); Calcium 9.5 mg/dL (8.4-10.2); Carbon Dioxide 24 mmol/L (22-29); Chloride 100 mmol/L (96-108); Creatinine Clr Calc Pharmacy 80.6; Estimated Glomerular Filt Rate > 60; Glucose Random 88 mg/dL (60-115); Potassium 5.1 mmol/L (3.3-5.1); Sodium 137 mmol/L (135-145)
== END 2021-09-13 15:20 | disposition home or self-care (01) ==
PROVIDERS: Emergency Provider Student in an Organized Health Care Education/Training Program; PCP Nurse Practitioner Family
DX: Z02.2 Encounter for examination for admission to residential institution (principal); F19.99 Other psychoactive substance use, unspecified with unspecified psychoactive substance-induced disorder; F17.200 Nicotine dependence, unspecified, uncomplicated
CPT/HCPCS: 80053; 80307; 82077; 85025; 87635; 99283